=== PATIENT | female | born 1960 | race African-American/Black ===

== ENCOUNTER → 2025-01-22 | Day surgery (SDC) | payer OTHER ==
[~2025-01-22] MED LIST: ACETAMINOPHEN 1000 MG/100 ML 100 ML IV ONE; AMLODIPINE BESY10 MG PO; DEXAMETHASONE SOD PHOS INJ 4 MG/ML SDV ONE; EPHEDRINE SULFATE INJ 50 MG/ML VIAL ONE; FENTANYL CITRATE/PF 100MCG/2 ML INJ ONE; LIDOCAINE HCL 2% LOCAL INJ 5 ML SDV VIAL INJ ONE; MONTELUKAST SOD10 MG PO; ONDANSETRON HCL INJ 2MG/ML 2ML 2 MG/ML VIAL ONE; PREDNISONE20 MG PO; PROPOFOL IV EMULSION 10 MG/ML 20 ML VIAL ONE; SEVOFLURANE INHAL SOLN 250 ML PEN BTL ONE
[2025-01-22] MEDS: CEFTRIAXONE 1 GM VIAL ONE (07:29)
[2025-01-22] MEDS: LACTATED RINGER'S 1,000 ML ONE (07:29)
[2025-01-22 09:33] VITALS: BP 140/77; PULSE 78; RESP 17; O2SAT 95
== END | disposition home or self-care (01) ==
LOC: OR 05:21
PROVIDERS: ATTEND Urology
DX: N35.92 Unspecified urethral stricture, female (principal); N95.2 Postmenopausal atrophic vaginitis; R35.1 Nocturia; Z87.440 Personal history of urinary (tract) infections; E66.01 Morbid (severe) obesity due to excess calories; I10 Essential (primary) hypertension; G57.93 Unspecified mononeuropathy of bilateral lower limbs; Z01.810 Encounter for preprocedural cardiovascular examination; Z79.899 Other long term (current) drug therapy; Z68.30 Body mass index [BMI] 30.0-30.9, adult
CPT/HCPCS: 52281; 74420; 93005; J0131; J0696; J1100; J2003; J2405; J2704; J3010; J7121